=== PATIENT | female | born 1990 | race Caucasian/White ===

== ENCOUNTER → 2021-03-22 | Outpatient (CLI) | payer OTHER ==
[~2021-03-22] MED LIST: IOHEXOL 300 MG/ML 50 ML VIAL. IJ ONE; LIDOCAINE 1% Multi-Dose 20 ML VIAL. INJ ONE
--- NOTE | 2021-03-22 14:55 | RAD ---
EXAM: Fluoroscopic guided lumbar puncture for CT myelography; cervical spine CT myelogram. HISTORY: Neck and right upper extremity pain. TECHNIQUE: The risks of the procedure were discussed with the patient and written and verbal consent was obtained. A timeout was performed. The patient was placed in a prone position on the fluoroscopy table and a site overlying L4-L5 was selected for needle entry. The skin in this location was sterile ly prepped, draped and infiltrated with 1 percent lidocaine. A 25-gauge spinal needle was advanced in to the thecal sac. 12 cc Omnipaque 300 intrathecal contrast was injected. The needle was removed and a sterile bandage was placed over the needle entry site. Fluoroscopic prone neutral and bilateral obl ique images were obtained. The fluoroscopic images were obtained for total fluoroscopy time of 0.1 mi nute. The patient was transferred to the CT suite for the post injection CT portion of the exam and d ischarged in stable condition 30 minutes following the procedure in stable condition. *One or more of the following individualized dose reduction techniques were utilized for this examina tion: 1. Automated exposure control. 2. Adjustment of the mA and/or kV according to patient size. 3. Use of iterative reconstruction technique. COMPARISON: MRI dated 11/09/2020. FINDINGS: There is no significant listhesis. The vertebral bodies are normal in height and the disc s paces are preserved. There is no suspicious osseous lesion. There is no fracture. The skull base and posterior fossa are unremarkable. The lung apices are unremarkable. There is no neck lymphadenopathy. At C2-C3, there is no stenosis. At C3-C4, C4-C5 and C5-C6, there is slight asymmetry in the size of the left greater than right neura l foramina, without significant foraminal stenosis. At C6-C7, there is a shallow posterior central disc protrusion. There is no stenosis. At C6-C7, IMPRESSION: Shallow posterior central disc protrusion at C6-C7. There is no significant cervical fora dex or central canal stenosis. Electronically signed by: Jenna Barksdale MD (03/22/2021 2:52 PM) [id number]
== END | disposition home or self-care (01) ==
LOC: RAD 12:50
PROVIDERS: ATTEND Neurological Surgery
DX: M54.12 Radiculopathy, cervical region (principal); M79.601 Pain in right arm
CPT/HCPCS: 62302; 72126; J3490; Q9967